=== PATIENT | female | born 1975 | race Caucasian/White ===

== ENCOUNTER 2016-06-17 10:23 | Outpatient (CLI) ==
[2016-02-06 11:58] VITALS: BMI 21.9
[2016-06-17 11:17] LABS: FLU INTERNAL QC INTERNAL QC VALID; RAPID FLU A NEGATIVE (NEGATIVE); RAPID FLU B NEGATIVE (NEGATIVE)
== END 2016-06-17 10:24 | disposition home or self-care (01) ==
LOC: LAB 10:23
PROVIDERS: ATTEND Family Medicine
DX: R50.9 Fever, unspecified (principal)
CPT/HCPCS: 87651; 87804; 87880